=== PATIENT | male | born 1995 | race African-American/Black ===

== ENCOUNTER 2023-03-06 15:15 | Outpatient (CLI) | payer OTHER ==
[2023-03-07 00:35] LABS: CHLAMYDIA TRACHOMATIS DNA NEGATIVE (NEGATIVE); NEISSERIA GONORRHOEAE DNA NEGATIVE (NEGATIVE); TRICHOMONAS VAGINALIS DNA NEGATIVE (NEGATIVE)
[2023-03-08 05:12] LABS: RPR Non Reactive (Non Reactive)
[2023-03-09 09:08] LABS: HIV SCREEN 4TH GENERATION Non Reactive (Non Reactive)
== END 2023-03-06 15:30 | disposition home or self-care (01) ==
LOC: LAB.N 15:15
PROVIDERS: ATTEND Specialist
DX: N34.2 Other urethritis (principal)
CPT/HCPCS: 36415; 86592; 87389; 87491; 87591; 87661

== ENCOUNTER 2023-05-12 08:00 | Outpatient (CLI) | payer OTHER ==
[2023-05-13 20:17] LABS: CHLAMYDIA TRACHOMATIS DNA NEGATIVE (NEGATIVE); NEISSERIA GONORRHOEAE DNA NEGATIVE (NEGATIVE); TRICHOMONAS VAGINALIS DNA NEGATIVE (NEGATIVE)
== END 2023-05-12 23:59 | disposition home or self-care (01) ==
LOC: LAB.N 08:00
PROVIDERS: ATTEND Physician Assistant Medical
DX: R30.0 Dysuria (principal)
CPT/HCPCS: 87491; 87591; 87661